=== PATIENT | male | born 1995 | race Caucasian/White ===

== ENCOUNTER 2018-09-24 05:32 | Emergency (ER) | payer SELFPAY, OTHER ==
[2018-09-24] MEDS: IPRATROPIUM 0.5MG/ALBUTEROL 2.5MG INH SOL UD 3ML (DUONEB)(J7620) NEB ×3 (06:31→06:32)
== END 2018-09-24 07:53 | disposition home or self-care (01) ==
LOC: M ED 05:32
DX: J06.9 Acute upper respiratory infection, unspecified (principal); Z72.0 Tobacco use; F12.10 Cannabis abuse, uncomplicated
CPT/HCPCS: 71046